=== PATIENT | male | born 1995 | race Caucasian/White ===

== ENCOUNTER 2018-01-01 16:21 | Emergency (ER) | payer SELFPAY ==
[~2018-01-01] VITALS: Ht 182.9 cm; Wt 72.0 kg
[2018-01-01 21:54] VITALS: BP 119/70
== END 2018-01-01 21:55 | disposition home or self-care (01) ==
LOC: ER 16:21
DX: S00.83XA Contusion of other part of head, initial encounter (principal); S80.01XA Contusion of right knee, initial encounter; S93.402A Sprain of unspecified ligament of left ankle, initial encounter; T14.8XXA Other injury of unspecified body region, initial encounter; M54.2 Cervicalgia; M54.9 Dorsalgia, unspecified; V49.09XA Driver injured in collision with other motor vehicles in nontraffic accident, initial encounter; Y93.89 Activity, other specified; Y92.89 Other specified places as the place of occurrence of the external cause; Y99.8 Other external cause status
CPT/HCPCS: 73562; 99284